=== PATIENT | female | born 1950 | race Caucasian/White ===

== ENCOUNTER → 2021-07-29 08:23 | Outpatient (CLI) | payer MEDICARE, SELFPAY ==
[2021-07-29 10:01] LABS: Add Manual Diff / Slide Review NO; Basophils Absolute Auto 0 /uL (0-100); Basophils Percent Auto 0.6 % (0-2); Eosinophils Absolute Auto 300 /uL (0-450); Eosinophils Percent Auto 5.1 % (2-4); Hematocrit 42.6 % (36-46); Hemoglobin 14.2 g/dL (12.0-16.0); Lymphocytes Absolute Auto 1700 /uL (1100-4500); Lymphocytes Percent Auto 30.7 % (25-40); Mean Corpuscular HGB Conc 33.3 % (30-36); Mean Corpuscular Hemoglobin 27.8 PG (26-34); Mean Corpuscular Volume 83.4 fL (80-100); Monocytes Absolute Auto 500 /uL (0-900); Monocytes Percent Auto 9.1 % (3-14); Neutrophils Absolute Auto 3000 /uL (1500-7000); Neutrophils Percent Auto 54.5 % (50-75); Platelet Count 207 X10^3/uL (150-400); Red Blood Cell Count 5.11 X10^6/uL (4.0-5.2); Red Cell Distribution Width 14.1 % (11.6-14.8); White Blood Cell Count 5.5 X10^3/uL (4.5-11.0)
[2021-07-29 10:16] LABS: Alanine Aminotransferase 33 IU/L (<35); Albumin 3.9 g/dL (3.5-5.0); Albumin Globulin Ratio 1.5 (1.0-2.8); Alkaline Phosphatase 80 U/L (38-126); Aspartate Aminotransferase 38 IU/L (14-36); BUN Creatinine Ratio 20.7 (6-22); Bilirubin Total 0.5 mg/dL (0.2-1.3); Blood Urea Nitrogen 17 mg/dL (7-17); Calcium 9.4 mg/dL (8.4-10.2); Carbon Dioxide 29 mmol/L (22-32); Chloride 106 mmol/L (98-107); Cholesterol 249 mg/dL (140-199); Estimated Glomerular Filt Rate > 60.0 mL/min (>60); Globulin 2.6 g/dL (1.7-4.1); Glucose 86 mg/dL (80-110); HDL Cholesterol 73 mg/dL (40-60); HEMOLYSIS < 15 (0-50); LDL Cholesterol Calculated 158 mg/dL (<100); Potassium 4.3 mmol/L (3.4-5.1); Sodium 140 mmol/L (137-145); Total Protein 6.5 g/dL (6.3-8.2); Triglycerides 92 mg/dL (35-150)
== END ==
PROVIDERS: Family Provider Physician Assistant; PCP Physician Assistant; Referring Provider Family Medicine; Visit Provider Family Medicine
DX: L40.9 Psoriasis, unspecified (principal); I10 Essential (primary) hypertension; M79.7 Fibromyalgia
CPT/HCPCS: 36415; 80053; 80061; 85025

== ENCOUNTER → 2021-07-31 11:53 | Outpatient (CLI) | payer MEDICARE, SELFPAY ==
[2021-08-01 09:20] LABS: Fecal Immunochemical Test Negative (Negative)
== END ==
PROVIDERS: Family Provider Physician Assistant; PCP Physician Assistant; Referring Provider Family Medicine; Visit Provider Family Medicine
DX: Z12.11 Encounter for screening for malignant neoplasm of colon (principal)
CPT/HCPCS: 82274

== ENCOUNTER → 2021-11-14 09:55 | Outpatient (CLI) | payer MEDICARE, SELFPAY ==
[2021-11-14 11:11] LABS: Cholesterol 198 mg/dL (140-199); HDL Cholesterol 61 mg/dL (40-60); LDL Cholesterol Calculated 120 mg/dL (<100); Triglycerides 84 mg/dL (35-150)
== END ==
PROVIDERS: Family Provider Physician Assistant; PCP Family Medicine; Referring Provider Family Medicine; Visit Provider Family Medicine
DX: E78.2 Mixed hyperlipidemia (principal); B35.4 Tinea corporis
CPT/HCPCS: 36415; 80061

== ENCOUNTER → 2023-04-26 08:16 | Outpatient (CLI) | payer MEDICARE, SELFPAY ==
--- NOTE | 2023-04-26 08:17 | DI.RAD.S_ITS ---
PROCEDURE: XR FOOT RT MIN 3V INDICATIONS: chronic pain of right foot TECHNIQUE: 3 views of the foot were acquired. COMPARISON: None. FINDINGS: Bones: No fractures or dislocations. Mild degenerative changes in the midfoot. No suspicious bony lesions. Soft tissues: No tibiotalar joint effusion. Achilles tendon appears normal. IMPRESSION: Mild degenerative changes in the midfoot. Consider MRI for further evaluation Dictated by: Luis F Spence M.D. on 04/26/2023 at 10:15 Approved by: Luis F Spence M.D. on 04/26/2023 at 10:17
== END ==
PROVIDERS: Family Provider Physician Assistant; PCP Family Medicine; Referring Provider Family Medicine; Visit Provider Family Medicine
DX: M79.671 Pain in right foot (principal); G89.29 Other chronic pain
CPT/HCPCS: 73630

== ENCOUNTER 2024-05-05 04:00 | Emergency (ER) | payer MEDICARE, SELFPAY ==
[2024-05-05 04:27] VITALS: BP 232/98; PULSE 78; RESP 16; O2SAT 98; BMI 32.3
[2024-05-05 04:32] LABS: Add Manual Diff / Slide Review NO; Basophils Absolute Auto 100 /uL (0-100); Basophils Percent Auto 0.7 % (0-2); Eosinophils Absolute Auto 200 /uL (0-450); Eosinophils Percent Auto 1.6 % (2-4); Hematocrit 41.1 % (36-46); Hemoglobin 13.7 g/dL (12.0-16.0); Lymphocytes Absolute Auto 1300 /uL (1100-4500); Lymphocytes Percent Auto 10.2 % (25-40); Mean Corpuscular HGB Conc 33.4 % (30-36); Mean Corpuscular Hemoglobin 27.8 PG (26-34); Monocytes Absolute Auto 500 /uL (0-900); Monocytes Percent Auto 3.6 % (3-14); Neutrophils Absolute Auto 10500 /uL (1500-7000); Neutrophils Percent Auto 83.9 % (50-75); Platelet Count 282 X10^3/uL (150-400); Red Blood Cell Count 4.95 X10^6/uL (4.0-5.2); Red Cell Distribution Width 13.5 % (11.6-14.8); White Blood Cell Count 12.5 X10^3/uL (4.5-11.0)
[2024-05-05 04:42] LABS: Alanine Aminotransferase 22 IU/L (<35); Albumin 4.6 g/dL (3.5-5.0); Albumin Globulin Ratio 1.6 (1.0-2.8); Alkaline Phosphatase 92 U/L (38-126); Aspartate Aminotransferase 31 IU/L (14-36); BUN Creatinine Ratio 21.2 (6-22); Bilirubin Total 0.4 mg/dL (0.2-1.3); Blood Urea Nitrogen 14 mg/dL (7-17); Calcium 9.2 mg/dL (8.4-10.2); Carbon Dioxide 27 mmol/L (22-32); Chloride 108 mmol/L (98-107); Estimated Glomerular Filt Rate > 60 mL/min (>60); Globulin 2.8 g/dL (1.7-4.1); Glucose 116 mg/dL (80-110); HEMOLYSIS 31 (0-50); Lipase 101 U/L (23-300); Potassium 3.9 mmol/L (3.4-5.1); Sodium 141 mmol/L (137-145); Total Protein 7.4 g/dL (6.3-8.2)
--- NOTE | 2024-05-05 04:44 | DI.CT.S_ITS ---
PROCEDURE: CT ABDOMEN PELVIS W CON INDICATIONS: Generalized abdominal pain with distention TECHNIQUE: After the administration of intravenous contrast, axial sections acquired from the lung bases to the pubic symphysis. Coronal and sagittal reformats were performed. For radiation dose reduction, the following was used: automated exposure control, adjustment of mA and/or kV according to patient size. COMPARISON: None. FINDINGS: Image quality: Diagnostic. Lower Chest: Small hiatal hernia. ABDOMEN: Liver: Scattered subcentimeter low-density lesions, likely cysts or hemangiomas. No enhancing mass. Gallbladder: No wall thickening or calcified stones. Biliary ducts: No biliary dilation. Pancreas: Normal size and morphology without visible ductal dilatation or inflammation. Spleen: Size is within normal limits. Adrenal Glands: No adrenal nodules. Kidneys and Ureters: Symmetric enhancement. No nephrolithiasis or hydronephrosis. No hydroureter. Stomach and Bowel: Stomach and small bowel loops are normal caliber. Normal appendix. There are signs of stasis in pelvic small bowel loops. Mild diverticulosis of the sigmoid colon. Peritoneum: Scattered mild fat stranding in the peritoneal cavity and at the base of the small bowel mesentery. Small amount of free pelvic fluid. Ventral Wall: No significant ventral hernia. Abdominal Nodes: No retroperitoneal or mesenteric adenopathy by size criteria. Vessels: Aorta and inferior vena cava are normal in size. PELVIS: Pelvic Organs: There is a heterogeneous, enhancing solid mass in the pelvis just right of midline measuring 8.9 x 7.3 cm, likely arising from the right ovary. Scattered areas of intrinsic hyperdensity. Calcification within a right fundal uterine fibroid. Left ovary is within normal limits. Bladder: No bladder wall thickening, accounting for underdistention. Pelvic Nodes: No enlarged lymph nodes. Miscellaneous: No inguinal hernias are seen. Bones: No aggressive osseous abnormality. IMPRESSION: 8.9 cm pelvic mass, likely associated with the right ovary and possibly containing active hemorrhage. Neoplasm is not excluded. Trace free pelvic fluid and minor reactive inflammation in the peritoneal cavity. Preliminary report conveyed by state inspector Radiology to the emergency room RN. Final interpretation is concordant with preliminary report. Dictated by: Juany Oliva M.D. on 05/05/2024 at 7:44 Approved by: Juany Oliva M.D. on 05/05/2024 at 7:57
--- NOTE | 2024-05-05 04:44 | ED.GENADULT ---
HPI - General Adult General Chief complaint: Abdominal Pain Stated complaint: abd pain, bloated, constipated Time Seen by Provider: 05/05/24 04:04 Source: patient Mode of arrival: Ambulatory History of Present Illness HPI narrative: Patient is a 74-year-old female. No prior history of abdominal issues who is here for evaluation of several days of abdominal bloating that she states last night became somewhat worse. She states she feels like she needs to have a bowel movement but has been unable to do so. Has not tried any laxatives. Also vomited last night. No fevers. She also states that there are occasionally episodes where she feels like she needs to urinate in has difficulty emptying her bladder and then the transfer she has not having any problems urinating. She states that she was really notice the bloating occurring over the past couple days but thought that maybe she has been having some bloating over the past several weeks if not longer. She denies chest pain or shortness of breath Related Data Home Medications Medication Instructions Recorded Confirmed calcium citrate 315 mg ##0 07/02/17 05/02/23 calcium-vitamin D3 6.25 mcg (250 unit) tablet (Citracal + Vitamin D Maximum) multivitamin (Multiple Vitamins 1 tab PO QDAY ##0 07/02/17 05/02/23 tablet) potassium gluconate 595 mg (99 mg) 99 mg PO QDAY ##0 07/02/17 05/02/23 tablet ascorbic acid (vitamin C) 1,000 mg 1 g PO Q6H 07/21/21 05/02/23 tablet Previous Rx's Medication Instructions Recorded hydrocodone 5 mg-acetaminophen 325 1 tab PO Q4-6H PRN pain #10 tabs 05/05/24 mg tablet Allergies Allergy/AdvReac Type Severity Reaction Status Date / Time morphine [MORPHINE] Allergy Severe STOPPED Unverified 05/05/23 12:14 BREATHING Sulfa (Sulfonamide Allergy Severe SWELLING, Unverified 05/05/23 12:14 Antibiotics) HIVES [SULFA (SULFONAMIDE ANTIBIOTICS)] Review of Systems Constitutional Constitutional: Reports system reviewed and no additional complaints, except as documented Gastrointestinal Gastrointestinal: Reports system reviewed and no additional complaints, except as documented Genitourinary Genitourinary: Reports system reviewed and no additional complaints, except as documented Integumentary/Breasts Skin/Breast: Reports system reviewed and no additional complaints, except as documented Patient History Medical History Somatic dysfunction of lower extremity Upper extremity somatic dysfunction Chronic pain of left hand Pain, foot, right, chronic Tinea corporis Hyperlipidemia, mixed Bilateral lower extremity edema Screen for colon cancer Psoriasis Eczema Sleep apnea (~2010) Fibromyalgia (~2006) Rheumatic fever Mumps Herpes Chicken pox Vertigo (~2017) Tinnitus Hearing loss Cataracts, bilateral (~2017) Hypertension Surgical History Anesthesia History of dilatation and curettage (~1993) History of tonsillectomy (~1965) Lipoma (~2016) Uterine polyp (~2016) Family History Father History of heart disease Mother History of heart disease Hypertension Brother Cancer Grandfather History of heart disease Grandmother Hip fracture Grandfather Cancer Social History Smoking Status: Former smoker alcohol intake: never substance use type: does not use Smoking Status: Former smoker Substance Use Type: does not use Exam Initial Vital Signs Initial Vital Signs: Vital Signs Pulse Rate 78 05/05/24 04:27 Respiratory Rate 16 05/05/24 04:27 Blood Pressure 232/98 H 05/05/24 04:27 Pulse Oximetry 98 05/05/24 04:27 Oxygen Delivery Method Room Air 05/05/24 04:27 Const General: cooperative, comfortable and No ill appearing Resp Effort & Inspection: normal respiratory effort Cardio Rate: regular rate GI Inspection: normal to inspection and distended Palpation: soft, No firm, No guarding and No rigid Skin General: no rashes or lesions noted Neuro General: patient alert, patient awake, patient oriented x3 and moves all extremities Course Orders Ordered: ED Orders 05/05/24 04:16 Complete Blood Count AUTO DIFF Stat Comprehensive Metabolic Panel Stat Lipase Stat 05/05/24 04:28 EKG-12 Lead Stat 05/05/24 04:44 CT abdomen pelvis w con Stat 05/05/24 05:23 US pelvic complete Stat 05/05/24 06:25 Cancer Antigen 125 Stat 05/05/24 06:27 Hemoglobin and Hematocrit Stat 06/04/24 06:42 Consult to Physician Stat Vital Signs Vital signs: Vital Signs - 8 hr 05/05/24 04:27 Pulse Rate 78 Respiratory Rate 16 Blood Pressure 232/98 H Pulse Oximetry 98 Oxygen Delivery Method Room Air Medical Decision Making Lab Data Lab results reviewed: Yes I reviewed the patient's lab results. 05/05/24 06:27 05/05/24 04:16 Labs: Lab Results 05/05/24 05/05/24 Range/Units 04:16 06:27 WBC 12.5 H (4.5-11.0) X10^3/uL RBC 4.95 (4.0-5.2) X10^6/uL Hgb 13.7 12.1 (12.0-16.0) g/dL Hct 41.1 36.0 (36-46) % MCV 83.0 (80-100) fL MCH 27.8 (26-34) PG MCHC 33.4 (30-36) % RDW 13.5 (11.6-14.8) % Plt Count 282 (150-400) X10^3/uL Neut % (Auto) 83.9 H (50-75) % Lymph % (Auto) 10.2 L (25-40) % [place] % (Auto) 3.6 (3-14) % Eos % (Auto) 1.6 L (2-4) % Baso % (Auto) 0.7 (0-2) % Neut # (Auto) 93655 H (2053-5526) /uL Lymph # (Auto) 1300 (1811-1137) /uL [place] # (Auto) 500 (0-900) /uL Eos # (Auto) 200 (0-450) /uL Baso # (Auto) 100 (0-100) /uL Sodium 141 (137-145) mmol/L Potassium 3.9 (3.4-5.1) mmol/L Chloride 108 H (98-107) mmol/L Carbon Dioxide 27 (22-32) mmol/L BUN 14 (7-17) mg/dL Creatinine 0.66 (0.52-1.04) mg/dL Estimated GFR > 60 (>60) mL/min BUN/Creatinine Ratio 21.2 (6-22) Glucose 116 H (80-110) mg/dL Calcium 9.2 (8.4-10.2) mg/dL Total Bilirubin 0.4 (0.2-1.3) mg/dL AST 31 (14-36) IU/L ALT 22 (<35) IU/L Alkaline Phosphatase 92 (38-126) U/L Total Protein 7.4 (6.3-8.2) g/dL Albumin 4.6 (3.5-5.0) g/dL Globulin 2.8 (1.7-4.1) g/dL Albumin/Globulin Ratio 1.6 (1.0-2.8) Lipase 101 (23-300) U/L Urine Dip Bedside Urine Glucose Negative Bedside Urine Bilirubin - Negative Bedside Urine Ketone - Negative Urine Specific [place] 1.015 Bedside Urine Occult Blood - Negative Bedside Urine pH 7.0 Bedside Urine Protein - Negative Bedside Urine Urobilinogen - Negative Bedside Urine Nitrite - Negative Bedside Urine Leukocytes - Negative Esterase Point of care testing: Urine Dip Bedside Urine Glucose Negative Bedside Urine Bilirubin - Negative Bedside Urine Ketone - Negative Urine Specific [place] 1.015 Bedside Urine Occult Blood - Negative Bedside Urine pH 7.0 Bedside Urine Protein - Negative Bedside Urine Urobilinogen - Negative Bedside Urine Nitrite - Negative Bedside Urine Leukocytes - Negative Esterase Imaging Data CT scan - abdomen/pelvis: Radiologist's Impression: Heterogeneous mass in the pelvis slightly to the right of midline measuring 8.9 x 7.3 cm likely arising from the right ovary and likely a hemorrhagic cyst with questionable active arterial extravasation ECG Data Attestation: I personally reviewed and interpreted this ECG as follows: Interpretation: Sinus rhythm Ventricular rate of 81 Normal axis Normal QRS No ST T wave changes MDM Narrative Medical decision making narrative: Sounds like patient's symptoms have been present for the past several weeks but potentially worsened over the past couple days. CT scan shows a right adnexal mass. Ultrasound confirms right adnexal mass. There was some findings of the CT scan that maybe there is active bleeding however patient has not had a change in her H&H. Not tachycardic. Not febrile. I discuss the case with Dr. Davila on-call with laboratory apparatus glass grinder who recommended ordering the CA 125. This was pending at the patient's discharge. Plan will be to have the patient follow-up in the laboratory apparatus glass grinder office in the next 20-48 hours as an outpatient. I did discuss this with the patient. Discussed return precautions and follow-up instructions. They expressed understanding and agreement with the plan. Discharge Plan Departure Patient Disposition: Home Clinical Impression: Adnexal mass Activity Restrictions/Additional Instructions: You should be receiving a phone call from Dr. Davila he was an decorator mannequin provider here at the [address] This is for a follow-up scheduled within the next 24-48 hours. Continue to take all of your medications as directed. Return to the emergency department for new or worsening symptoms. Prescriptions: New hydrocodone-acetaminophen 5-325 mg tablet 1 tab PO Q4-6H PRN (Reason: pain) Qty: 10 0RF No Action calcium citrate-vitamin D3 [Citracal + D Maximum] 1,500 MG/250 IU tablet Qty: 0 multivitamin [Multiple Vitamins] 1 EACH tablet 1 tab PO QDAY Qty: 0 potassium gluconate 99 MG tablet 99 mg PO QDAY Qty: 0 ascorbic acid (vitamin C) 1,000 mg tablet 1 g PO Q6H Referrals: Landy Davila MD [Physician] - Roberto Carlos Tovar DO [Primary Care Provider] - Stand Alone Forms: Patient Portal/API
--- NOTE | 2024-05-05 05:23 | DI.US.S_ITS ---
PROCEDURE: US PELVIC COMPLETE INDICATIONS: R ovarian pathology seen on CT TECHNIQUE: Real-time scanning was performed of the pelvic organs, with image documentation. Additional endovaginal scanning was necessary due to incomplete visualization of the adnexal and endometrial structures by transabdominal scanning. COMPARISON: [facility], , PELVIC COMPLETE, 05/06/2017, 13:40. FINDINGS: Uterus: Uterus is anteverted and normal in size at 6.7 x 3.5 x 6.2 cm. The myometrium is homogeneous. The endometrium measures 6.5 mm combined thickness. Several endometrial and sub endometrial cystic changes are present. Ovaries: The ovaries were not seen. Superior to the uterus, there is a solid complex mass measuring 8.2 x 6.8 x 8.0 cm without internal vascularity. Other: Trace free pelvic fluid. IMPRESSION: Solid pelvic mass as seen by CT. Differential diagnosis includes hemorrhagic cyst and neoplasm. The exam was terminated due to patient discomfort. Endometrial thickness at the upper limits of normal for postmenopausal female. If the patient is symptomatic, tissue sampling could be considered. Final interpretation is concordant with preliminary report. We strive to produce accurate, complete, and clear reports of imaging services. To assist us in improving patient care, this report was composed using standard report templates and voice recognition software. Therefore, it may contain abnormal punctuation, insertions and/or omissions. Occasional wrong-word or sound-alike substitutions may occur. Though we review the report and make efforts to correct it, we do recommend that the report be read carefully in proper context to recognize any text inaccuracies. Dictated by: Juany Oliva M.D. on 05/05/2024 at 7:57 Approved by: Juany Oliva M.D. on 05/05/2024 at 8:03
[2024-05-05 06:38] LABS: Hemoglobin 12.1 g/dL (12.0-16.0)
[2024-05-05 07:03] VITALS: BP 194/85; PULSE 74; RESP 16; O2SAT 98
[2024-05-05 07:27] LABS: Cancer Antigen 125 20.8 U/mL (0-35)
== END 2024-05-05 07:05 | disposition home or self-care (01) ==
PROVIDERS: Emergency Provider Emergency Medicine; Family Provider Physician Assistant; PCP Family Medicine
DX: N94.89 Other specified conditions associated with female genital organs and menstrual cycle (principal); R07.9 Chest pain, unspecified; R79.89 Other specified abnormal findings of blood chemistry
CPT/HCPCS: 36415; 51798; 74177; 76830; 76856; 80053; 81003; 83690; 85014; 85018; 85025; 86304; 93005; 99283; 99284; Q9967

== ENCOUNTER 2024-05-07 16:47 | Emergency (ER) | payer MEDICARE, SELFPAY ==
[2024-05-07 17:02] VITALS: BP 126/60; PULSE 88; RESP 17; TEMP 36.6; O2SAT 97; BMI 34.6
[2024-05-07 17:47] LABS: Appearance Urine UA CLEAR; Bilirubin Urine UA NEGATIVE (NEGATIVE); Color Urine UA YELLOW; Glucose Urine UA NEGATIVE (Negative); Ketones Urine UA 1+ (NEGATIVE); Leukocyte Esterase Urine UA NEGATIVE (NEGATIVE); Nitrite Urine UA NEGATIVE (Negative); Occult Blood Urine UA 1+ (Negative); Protein Urine UA NEGATIVE (Negative); Urobilinogen Urine UA 0.2 E.U./dL (0.2)
[2024-05-07 17:54] LABS: Bacteria Urine Occasional (0-1); Culture Indicated Urine Cult Not Indicated; Mucus Urine 1+ (Negative); RBC Urine 1-5/HPF (0-5/HPF); Squamous Epithelial Cell Urine None Seen (0-5/HPF); Urine Volume 10mL (spun); WBC Urine 0-1/HPF (0-5/HPF)
--- NOTE | 2024-05-07 19:54 | ED.GENADULT ---
HPI - General Adult General Chief complaint: Urogenital-Female Stated complaint: unable to urinate 18+ hrs Time Seen by Provider: 05/07/24 19:54 Source: patient Mode of arrival: Ambulatory Related Data Home Medications Medication Instructions Recorded Confirmed calcium citrate 315 mg ##0 07/02/17 05/06/24 calcium-vitamin D3 6.25 mcg (250 unit) tablet (Citracal + Vitamin D Maximum) multivitamin (Multiple Vitamins 1 tab PO QDAY ##0 07/02/17 05/06/24 tablet) potassium gluconate 595 mg (99 mg) 99 mg PO QDAY ##0 07/02/17 05/06/24 tablet ascorbic acid (vitamin C) 1,000 mg 1 g PO Q6H 07/21/21 05/06/24 tablet Previous Rx's Medication Instructions Recorded hydrocodone 5 mg-acetaminophen 325 1 tab PO Q4-6H PRN pain #10 tabs 05/05/24 mg tablet Allergies Allergy/AdvReac Type Severity Reaction Status Date / Time morphine [MORPHINE] Allergy Severe STOPPED Verified 05/07/24 17:05 BREATHING Sulfa (Sulfonamide Allergy Severe SWELLING, Verified 05/07/24 17:05 Antibiotics) HIVES [SULFA (SULFONAMIDE ANTIBIOTICS)] Patient History Medical History Somatic dysfunction of lower extremity Upper extremity somatic dysfunction Chronic pain of left hand Pain, foot, right, chronic Tinea corporis Hyperlipidemia, mixed Bilateral lower extremity edema Screen for colon cancer Psoriasis Eczema Sleep apnea (~2010) Fibromyalgia (~2006) Rheumatic fever Mumps Herpes Chicken pox Vertigo (~2016) Tinnitus Hearing loss Cataracts, bilateral (~2017) Hypertension Surgical History Anesthesia History of dilatation and curettage (~1993) History of tonsillectomy (~1965) Lipoma (~2016) Uterine polyp (~2016) Family History Father History of heart disease Mother History of heart disease Hypertension Brother Cancer Grandfather History of heart disease Grandmother Hip fracture Grandfather Cancer Social History Smoking Status: Former smoker alcohol intake: never substance use type: does not use Smoking Status: Former smoker Substance Use Type: does not use Exam Initial Vital Signs Initial Vital Signs: Vital Signs Temperature 98 F 05/07/24 17:02 Pulse Rate 88 05/07/24 17:02 Respiratory Rate 17 05/07/24 17:02 Blood Pressure 126/60 05/07/24 17:02 Pulse Oximetry 97 05/07/24 17:02 Oxygen Delivery Method Room Air 05/07/24 17:02 Course Orders Ordered: ED Orders 05/07/24 17:20 Urinalysis and Microscopic Stat Vital Signs Vital signs: Vital Signs - 8 hr 05/07/24 17:02 Temperature 98 F Pulse Rate 88 Respiratory Rate 17 Blood Pressure 126/60 Pulse Oximetry 97 Oxygen Delivery Method Room Air Medical Decision Making Lab Data Labs: Lab Results 05/07/24 Range/Units 17:20 Urine Color Yellow Urine Appearance Clear Urine pH 6.0 (4.5-8.0) Ur Specific [place] 1.010 (1.000-1.035) Urine Protein Negative (Negative) Urine Glucose (UA) Negative (Negative) g/dL Urine Ketones 1+ H (NEGATIVE) Urine Occult Blood 1+ H (Negative) Urine Nitrate Negative (Negative) Urine Bilirubin Negative (NEGATIVE) Urine Urobilinogen 0.2 (0.2) E.U./dL Ur Leukocyte Esterase Negative (NEGATIVE) Urine RBC 1-5/hpf (0-5/HPF) Urine WBC 0-1/hpf (0-5/HPF) Ur Squamous Epith Cells None seen (0-5/HPF) Urine Bacteria Occasional (0-1) (None) Urine Mucus 1+ H (Negative) Ur Culture Indicated? Cult not indicated Vol Urine Centrifuged 10ml (spun) Discharge Plan Departure Prescriptions: No Action calcium citrate-vitamin D3 [Citracal + D Maximum] 1,500 MG/250 IU tablet Qty: 0 multivitamin [Multiple Vitamins] 1 EACH tablet 1 tab PO QDAY Qty: 0 potassium gluconate 99 MG tablet 99 mg PO QDAY Qty: 0 ascorbic acid (vitamin C) 1,000 mg tablet 1 g PO Q6H hydrocodone-acetaminophen 5-325 mg tablet 1 tab PO Q4-6H PRN (Reason: pain) Qty: 10 0RF Referrals: Roberto Carlos Tovar DO [Primary Care Provider] -
== END 2024-05-07 21:00 | disposition left against medical advice (07) ==
PROVIDERS: Emergency Medicine; Emergency Provider Emergency Medicine; Family Provider Physician Assistant; PCP Family Medicine
DX: R33.9 Retention of urine, unspecified (principal)
CPT/HCPCS: 51798; 81001; 99283

== ENCOUNTER 2024-05-14 07:54 | Day surgery (SDC) | payer MEDICARE, SELFPAY ==
[2024-05-11 12:53] VITALS: BMI 31.3
[2024-05-14] VITALS (9 sets, daily range): BP systolic 122–149; BP diastolic 26–79; PULSE 69–89; RESP 14–69; TEMP 36.4–36.8; O2SAT 90–97; BMI 33.5
--- NOTE | 2024-05-14 | PATH_ITS ---
Note [facility] Accession Number: [id number] TESTS RESULT FLAG UNITS REF RANGE LAB Clinician Provided Cytology Information No. of containers..01 Other (Miscellaneous) Source: PELVIC WASHINGS DIAGNOSIS: PELVIC WASHINGS NEGATIVE FOR MALIGNANT CELLS. REACTIVE MESOTHELIAL CELLS ARE PRESENT. THIS INTERPRETATION INCLUDES EVALUATION OF A CELL BLOCK. Pathologist ICD10: D25.0 Signed out by: Fabricio Maldonado MD, Pathologist NPI- [id number] Performed by: Kem Wolf, Business Resiliency Manager ([facility]) Gross description: 20 CC, RED, CLOUDY RECEIVED: FRESH IN BLUE CAP CONTAINER.VO /VDU 05/15/2024 0625 Local FLAG LEGEND: L-Low Normal,H-High Normal,LL-Alert Low,HH-Alert High <-Panic Low,>-Panic High,A-Abnormal,AA-Critical Abnormal Performed at: 01 [address] [facility] [address] [facility], [place] [address] Manan Sheikh MD, Performed at: [address] [facility] [address] [facility], [place], [place] [id number] MD Manan Sheikh MD Phone: [phone]
[2024-05-14] MEDS: LACTATED RINGERS 1,000 ML 42 ML IV (08:31)
[2024-05-14] MEDS: ACETAMINOPHEN IV 1,000 MG/100 ML VIAL 400 MG IV (08:32)
--- NOTE | 2024-05-14 09:29 | PM.GYNHP.1 ---
History of Present Illness History of Present Illness Reason for admission: pelvic mass Narrative: Virginia Chacko is a 74 year old female 1 para 1 who presents for a laparoscopic removal of pelvic mass, removal of both tubes and ovaries, D&C hysteroscopy with possible polypectomy. These procedures are being done due to a large calcified pelvic mass, patient unable to void completely due to the mass, and thickened endometrial lining with a history of uterine polyps. [facility] Medical History Somatic dysfunction of lower extremity Upper extremity somatic dysfunction Chronic pain of left hand Pain, foot, right, chronic Tinea corporis Hyperlipidemia, mixed Bilateral lower extremity edema Screen for colon cancer Psoriasis Eczema Sleep apnea (~2010) Fibromyalgia (~2006) Rheumatic fever Mumps Herpes Chicken pox Vertigo (~2016) Tinnitus Hearing loss Cataracts, bilateral (~2017) Hypertension Surgical History Anesthesia History of dilatation and curettage (~1993) History of tonsillectomy (~1965) Lipoma (~2016) Uterine polyp (~2016) Family History Father History of heart disease Mother History of heart disease Hypertension Brother Cancer Grandfather History of heart disease Grandmother Hip fracture Grandfather Cancer Social History household members: significant other Smoking Status: Former smoker alcohol intake: never substance use type: does not use Meds Home Medications and Allergies Home Medications Medication Instructions Recorded Confirmed Type calcium citrate 315 mg ##0 07/02/17 05/06/24 History calcium-vitamin D3 6.25 mcg (250 unit) tablet (Citracal + Vitamin D Maximum) multivitamin (Multiple Vitamins 1 tab PO QDAY ##0 07/02/17 05/06/24 History tablet) potassium gluconate 595 mg (99 mg) 99 mg PO QDAY ##0 07/02/17 05/06/24 History tablet ascorbic acid (vitamin C) 1,000 mg 1 g PO Q6H 07/21/21 05/06/24 History tablet hydrocodone 5 mg-acetaminophen 325 1 tab PO Q4-6H PRN pain #10 tabs 05/05/24 05/06/24 Rx mg tablet Allergies Allergy/AdvReac Type Severity Reaction Status Date / Time morphine [MORPHINE] Allergy Severe STOPPED Verified 05/07/24 17:05 BREATHING Sulfa (Sulfonamide Allergy Severe SWELLING, Verified 05/07/24 17:05 Antibiotics) HIVES [SULFA (SULFONAMIDE ANTIBIOTICS)] Exam Vital Signs (past 8 hours): - 05/14/24 08:26 Temperature 98.1 F Pulse Rate 77 Respiratory Rate 16 Blood Pressure 146/77 H Pulse Oximetry 94 Oxygen Delivery Method Room Air Oxygen Delivery Method Room Air Narrative Exam Narrative: HEENT: No thyromegaly, no anterior cervical or supraclavicular lymphadenopathy. Lungs:Clear to auscultation bilaterally, no wheezes. Cardiovascular: Regular rate and rhythm, no murmurs, rubs, or gallops. Abdomen: No scars. No hepatosplenomegaly. Mass palpable in the anterior abdomen External genitalia: Normal Vagina: Normal Cervix: Normal Bimanual exam: 6 Week size anteverted uterus. Mobile. Pelvic mass palpable measuring 8 cm. Extremities: No edema Assessment & Plan Assessment & Plan narrative: Assessment: 74-year-old 1 para 1 with a large pelvic mass, suspected to be a pedunculated fibroid, incomplete emptying of the bladder, thickened endometrial lining with a history of endometrial polyps Plan: Laparoscopic removal of the mass, bilateral salpingo-oophorectomy, D&C hysteroscopy with possible polypectomy Removal of Montes catheter at the end of the case The risks, benefits, and alternatives to the procedure were explained to the patient. The risks including bleeding, infection, injury to the bowel, bladder, ureters, or uterine perforation. She understands these risks and agrees to proceed. A full par Q was held and consent form was signed. Time Spent With Patient Time with patient: less than 30 minutes
--- NOTE | 2024-05-14 10:25 | SUR.OPER ---
Lithotomy on padded OR bed. [place] Pad Positioner under torso. Head on pillow, arms padded and tucked at sides. Legs secured in padded yellow fins stirrups.
[2024-05-14] MEDS: BUPIVACAINE 0.5% (PF) 30 ML, EPINEPHrine 0.15 MG INJ (10:29)
--- NOTE | 2024-05-14 11:14 | PM.GYNOP.1 ---
Operative Date/Time/Diagnoses Date of procedure: 05/14/24 Time of procedure: 11:14 Pre-op diagnosis: Pelvic pain Pelvic mass suspicious for pedunculated fibroid Normal CA-125 Post-op diagnosis: same Procedure & Clinicians Procedure: Procedures Operation Date: 05/14/24 09:15 Actual Procedure Side Surgeon p Laparoscopic removal of pedunculated fibroid, removal of bilateral fallopian tubes and ovaries, D & C, Catheter removal Landy Davila MD Indications: 74-year-old 1 para 1 with a pelvic mass suspicious for a pedunculated, degenerating fibroid. Unable to void, catheter placed in the bladder in the emergency department. Thickened endometrial lining. Surgeon: Landy Davila Ends Breakage Clerk: Robby Hoffman Anesthesia Type: General and Local Operative Notes Findings: 6 week size multi fibroid uterus 4 cm posterior pedunculated fibroid 5 cm subserosal fibroid 10 cm complex mass arriving from the right ovary Normal right tube Normal left tube and ovary Normal liver and gallbladder No evidence of seeding of the omentum, bilateral ovarian fossa, anterior or posterior cul-de-sac Closure Type: primary Specimen(s): endometrial curettings, left tube & ovary, right tube & ovary and washings (Pelvic) Applied: catheter (Was in place at the beginning of the case, removed at the end of the case) Estimated blood loss (mL): 10 Blood products transfused: none Procedure in detail: After informed consent was obtained, the patient was taken to the operating room where she was placed in the dorsal supine position. After adequate general endotracheal anesthesia was achieved, she was placed in the dorsal lithotomy position, and prepped and draped in the usual sterile fashion. A time-out was performed. A bivalve speculum was placed into the vagina and the anterior lip of the cervix was grasped with a single-tooth tenaculum. The cervical os was sequentially dilated until the Zumi uterine manipulator could pass easily into the endometrial cavity. The single-tooth tenaculum was removed from the anterior lip of the cervix. The bivalve speculum was removed from the vagina. Attention was then turned to the abdomen where 6 cc of 0.5% Marcaine with epinephrine were injected in the umbilical fold. A 5 mm incision was made. The Veress needle was placed into the peritoneal cavity, and its placement confirmed by aspiration and drop test. The Veress needle was removed. A 5 mm trocar was placed without difficulty. Two other incisions were made 4 cm lateral to the midline after 6 cc of 0.5% Marcaine with epinephrine were injected. Two 5 mm trocars were placed under direct visualization. The pelvis and abdomen were examined with the findings noted above. Pelvic washings were obtained. The left tube and ovary were grasped with an atraumatic grasper. Using the power seal the infundibulopelvic ligament on the left side was cauterized and cut. The mesosalpinx was cauterized and cut all the way down to the cornua of the uterus. The tube was amputated at the cornua. The left tube and ovary were placed into the anterior cul-de-sac. The right tube and ovary were grasped with an atraumatic grasper. With care to avoid the ureter on the right side the infundibulopelvic ligament was cauterized and cut with the power seal. This was continued along the pedicle to the cornua of the uterus. The tube was then amputated at the cornua. The right tube and ovary were placed into the right lower quadrant. There was a pedunculated fibroid on the posterior uterus. This was grasped with a laparoscopic single-tooth tenaculum. Using the power seal the pedicle was cauterized and cut. This was placed into the right lower quadrant. The left tube and ovary were also placed into the right lower quadrant. 6 cc of 0.5% Marcaine with epinephrine were injected above the pubic symphysis. A 12 mm incision was made. A 12 mm trocar was placed under direct visualization. The large endobag was placed through the suprapubic trocar. The right tube and ovary, left tube and ovary, and pedunculated fibroid were placed into the bag. The trocar was removed and the edges of the bag were brought up through the incision. Using the Pagan scissors the fascial incision was extended bilaterally. An Rommel was placed into the large endobag. The right ovary was morcellated in approximately 20 pieces. This was very friable. The left tube and ovary were removed as well as the fibroid. The bag was removed from the peritoneal cavity. The fascial incision was closed with 0 Vicryl in a running fashion. The abdomen was re-insufflated and there was no bleeding noted. The instruments were removed from the abdomen. The CO2 was allowed to escape. All of the incisions were closed with 4-0 Monocryl in a subcuticular fashion. Steri-Strips and Allevyn dressings were placed. The Zumi uterine manipulator was removed from the uterus. Sponge, lap, and instrument counts were correct x2. The patient tolerated the procedure well, and was taken to PACU in stable condition. Complications: none Post-operative Condition: stable Disposition: PACU Plan for aftercare: Home after recovery
--- NOTE | 2024-05-14 11:21 | PM.PREOP ---
Pre-operative Note Interval Note History & Physical reviewed/Exam performed by Physician: Yes Changes to H&P: No H&P completed within 30 days and has changed as indicated here:: 05/14/24
[2024-05-14] MEDS: TRAMADOL 50 MG TABLET 25 MG PO ×2 (13:31→14:43)
== END 2024-05-14 14:45 | disposition home or self-care (01) ==
PROVIDERS: Family Provider Physician Assistant; PCP Family Medicine; Referring Provider Obstetrics & Gynecology; Visit Provider Obstetrics & Gynecology
PROC: (CPT 49320; principal; 2024-05-14 09:15)
DX: D25.2 Subserosal leiomyoma of uterus (principal)
CPT/HCPCS: 58545; 58661; J0136; J0171; J1100; J1885; J2405; J2704; J3010

== ENCOUNTER → 2025-05-12 10:17 | Outpatient (CLI) | payer MEDICARE, SELFPAY ==
[2025-05-12 12:01] LABS: HEMOLYSIS < 15 (0-50)
[2025-05-12 12:06] LABS: Alanine Aminotransferase 32 IU/L (<35); Albumin 4.3 g/dL (3.5-5.0); Albumin Globulin Ratio 1.9 (1.0-2.8); Alkaline Phosphatase 97 U/L (38-126); Aspartate Aminotransferase 37 IU/L (14-36); BUN Creatinine Ratio 12.1 (6-22); Bilirubin Total 0.4 mg/dL (0.2-1.3); Blood Urea Nitrogen 12 mg/dL (7-17); Calcium 10.1 mg/dL (8.4-10.2); Carbon Dioxide 27 mmol/L (22-32); Chloride 108 mmol/L (98-107); Cholesterol 227 mg/dL (140-199); Estimated Glomerular Filt Rate 59 mL/min (>60); Globulin 2.3 g/dL (1.7-4.1); Glucose 96 mg/dL (70-99); HDL Cholesterol 77 mg/dL (40-60); LDL Cholesterol Calculated 124 mg/dL (<100); Potassium 5.2 mmol/L (3.4-5.1); Sodium 142 mmol/L (137-145); Total Protein 6.6 g/dL (6.3-8.2); Triglycerides 132 mg/dL (35-150)
[2025-05-12 12:37] LABS: TSH w/ Reflex to FT4 1.61 uIU/mL (0.47-4.68)
[2025-05-12 12:44] LABS: Cancer Antigen 125 19.8 U/mL (0-35)
== END ==
PROVIDERS: PCP Family Medicine; Referring Provider Family Medicine; Visit Provider Family Medicine
DX: R14.0 Abdominal distension (gaseous) (principal); R53.83 Other fatigue; R19.5 Other fecal abnormalities; F32.A Depression, unspecified; Z85.43 Personal history of malignant neoplasm of ovary
CPT/HCPCS: 36415; 80053; 80061; 84443; 86304

== ENCOUNTER → 2025-05-13 08:55 | Outpatient (CLI) | payer MEDICARE, SELFPAY ==
[2025-05-14 16:08] LABS: C difficie Toxins A and B, EIA Negative (Negative)
== END ==
PROVIDERS: PCP Family Medicine; Referring Provider Family Medicine; Visit Provider Family Medicine
DX: R14.0 Abdominal distension (gaseous) (principal); R19.5 Other fecal abnormalities; R53.83 Other fatigue; F32.A Depression, unspecified; Z85.43 Personal history of malignant neoplasm of ovary
CPT/HCPCS: 87324

== ENCOUNTER → 2025-05-15 12:08 | Outpatient (CLI) | payer MEDICARE, SELFPAY ==
--- NOTE | 2025-05-15 12:10 | DI.CT.S_ITS ---
PROCEDURE: CT ABDOMEN PELVIS W CON INDICATIONS: stool caliber change, bloating, hx ovarian cancer TECHNIQUE: After the administration of intravenous contrast, axial sections acquired from the lung bases to the pubic symphysis. Coronal and sagittal reformats were performed. For radiation dose reduction, the following was used: automated exposure control, adjustment of mA and/or kV according to patient size. COMPARISON: [facility], CT, CT ABDOMEN PELVIS W CON, 05/05/2024, 4:53. FINDINGS: Image quality: Diagnostic. Lower Chest: No significant findings. ABDOMEN: Liver: No solid mass. Well-circumscribed cyst in inferior right hepatic lobe is again seen and unchanged. Gallbladder: No radiopaque gallstones or wall thickening. Biliary ducts: No biliary dilation. Pancreas: No ductal dilation. Spleen: Size is within normal limits. Adrenal Glands: No adrenal nodules. Kidneys and Ureters: No hydronephrosis. No solid mass. No complex renal cystic lesion which requires follow up. Stomach and Bowel: There is no bowel obstruction or abnormal bowel wall thickening. Appendix is visualized in right lower quadrant and is within normal limits. Oral contrast is seen in mid to distal small bowel loops. Colonic diverticulosis without CT evidence of acute diverticulitis. There is questionable right-sided rectal wall thickening with narrowing of the lumen series 2, image 123 not seen on previous study. No other area of abnormal colonic wall thickening. Peritoneum: No abnormal intraperitoneal fluid. No free air. Ventral Wall: No significant ventral hernia. Abdominal Nodes: No retroperitoneal or mesenteric adenopathy by size criteria. Vessels: Aorta and inferior vena cava are normal in size. PELVIS: Pelvic Organs: Unremarkable. Previously described heterogeneously enhancing solid mass in right pelvis is no longer present Bladder: No bladder wall thickening, accounting for underdistention. Pelvic Nodes: No enlarged lymph nodes. Miscellaneous: No inguinal hernias are seen. Bones: No aggressive osseous abnormality. IMPRESSION: 1. Previously described right lower pelvic mass is low longer present.. No gross abnormality is seen in uterus and bilateral adnexa on the current study. 2. Asymmetric right-sided rectal wall thickening with narrowing of the lumen concerning for rectal wall mass versus inflammatory process suggest GI correlation and possible endoscopic evaluation. 3. No other area of abnormal bowel wall thickening. Sigmoid diverticulosis without CT evidence of acute diverticulitis. No abscess collection. No free fluid or free air. 4. No gross abdominal or pelvic lymphadenopathy. Dictated by: Zackary Garcia M.D. on 05/16/2025 at 20:51 Approved by: Zackary Garcia M.D. on 05/16/2025 at 20:59
== END ==
LOC: CT 12:09
PROVIDERS: PCP Family Medicine; Referring Provider Family Medicine; Visit Provider Family Medicine
DX: K57.30 Diverticulosis of large intestine without perforation or abscess without bleeding (principal); K76.89 Other specified diseases of liver; R19.5 Other fecal abnormalities; R14.0 Abdominal distension (gaseous)
CPT/HCPCS: 74177; Q9967

== ENCOUNTER 2025-05-25 10:38 | Day surgery (SDC) | payer MEDICARE, SELFPAY ==
[2025-05-25] VITALS (10 sets, daily range): BP systolic 170–189; BP diastolic 84–99; PULSE 78–104; RESP 16–22; TEMP 36.2–37.3; O2SAT 93–100
--- NOTE | 2025-05-25 | DI.RAD.S_ITS ---
PROCEDURE: XR CHEST 1V INDICATIONS: shortness of breath after anesthesia TECHNIQUE: One view of the chest was acquired. COMPARISON: None. FINDINGS: Surgical changes and devices: None. Lungs and pleura: Consolidative radiopacities are present within the mid and left lower lung. The right lung is clear. No pleural effusion or pneumothorax. Mediastinum: Mediastinal contours appear normal. Heart size is normal. Bones and chest wall: No suspicious bony lesions. Overlying soft tissues appear unremarkable. IMPRESSION: Findings suspicious for left lower lobe aspiration. Short interval followup is recommended with resolution of the patient's symptoms to ensure there is no underlying pulmonary pathology. Dictated by: Emily García M.D. on 05/25/2025 at 14:53 Approved by: Emily García M.D. on 05/25/2025 at 14:53
[2025-05-25] MEDS: LACTATED RINGERS 1,000 ML 42 ML IV (11:26)
--- NOTE | 2025-05-25 12:23 | PM.HP.IH.1 ---
History of Present Illness History of Present Illness Date Patient Seen: 05/25/25 Time Patient Seen: 12:24 Chief complaint: Dx Colonoscopy w/poss bx Narrative: 75-year-old female patient, 1st screening colonoscopy. Family history significant for a brother and a paternal grandfather with colon cancer. She has a history of irritable bowel syndrome. She had a recent CT imaging for uterine leiomyoma which was removed and this demonstrated rectal wall thickening and diverticulosis. Patient states the prep went well. [facility] Medical History (Updated 05/25/25 @ 12:26 by Martínez Maldonado MD) Rectal abnormality Depression Fatigue Hx of ovarian cancer Abdominal bloating Change in stool caliber Somatic dysfunction of lower extremity Upper extremity somatic dysfunction Chronic pain of left hand Pain, foot, right, chronic Tinea corporis Hyperlipidemia, mixed Bilateral lower extremity edema Screen for colon cancer Psoriasis Eczema Sleep apnea (~2010) Fibromyalgia (~2006) Rheumatic fever Mumps Herpes Chicken pox Vertigo (~2016) Tinnitus Hearing loss Cataracts, bilateral (~2016) Hypertension Surgical History Anesthesia History of dilatation and curettage (~1993) History of tonsillectomy (~1965) Uterine polyp (~2016) Lipoma (~2016) Family History Father History of heart disease Mother History of heart disease Hypertension Brother Cancer Grandfather History of heart disease Grandmother Hip fracture Grandfather Cancer Social History household members: significant other Smoking Status: Former smoker alcohol intake: never substance use type: does not use Meds Home Medications and Allergies Home Medications ?Medication ?Instructions ?Recorded ?Confirmed ?Type calcium 315 mg (as ##0 07/02/17 05/12/25 History citrate)-vitamin D3 6.25 mcg (250 unit) tablet (Citracal + Vitamin D Maximum) multivitamin (Multiple Vitamins 1 tab PO QDAY ##0 07/02/17 05/12/25 History tablet) potassium gluconate 595 mg (99 mg) 99 mg PO QDAY ##0 07/02/17 05/12/25 History tablet ascorbic acid (vitamin C) 1,000 mg 1 g PO Q6H 07/21/21 05/12/25 History tablet Allergies Allergy/AdvReac Type Severity Reaction Status Date / Time morphine (MORPHINE) Allergy Severe STOPPED Verified 05/25/25 11:04 BREATHING Sulfa (Sulfonamide Allergy Severe SWELLING, Verified 05/25/25 11:04 Antibiotics) (SULFA HIVES (SULFONAMIDE ANTIBIOTICS)) Exam Vital Signs (past 8 hours): - 05/25/25 11:06 Temperature 98.7 F Pulse Rate 78 Respiratory Rate 16 Blood Pressure 170/92 H Pulse Oximetry 100 Oxygen Delivery Method Room Air Oxygen Delivery Method Room Air Const General: comfortable Orientation: alert and oriented x3 Resp Effort & Inspection: normal respiratory effort and able to speak in complete sentences Cardio Rate: regular rate GI Palpation: soft (non-tender) Extrem General: normal to inspection Assessment & Plan Assessment and plan (1) Encounter for screening colonoscopy: Status: Acute Assessment & Plan narrative: Needs screening colonoscopy Change in bowel habits Rectal thickening on CT scan Plan colonoscopy, possible biopsy, possible polypectomy. The risks, benefits and options regarding the procedure were explained to the patient in detail. Risk discussion included but not limited to: perforation, bleeding, missed lesions. The patient was encouraged to ask questions and they were answered to their satisfaction. The patient understands and is agreeable to proceed. Time-Based Coding :: [TOTAL MINUTES] spent with patient and on the chart (including review of chart, obtaining history, exam, reviewing outside data, placing orders, documenting exam and treatment plan, and counseling patient) on [DATE]. PROFEE Director Regulatory Agency Document charge(s): Yes
--- NOTE | 2025-05-25 13:25 | P.OP.COLON_ITS ---
Operative Date/Time/Diagnoses Date of procedure: 05/25/25 Time of procedure: 13:25 Pre-op diagnosis: Need for screening colonoscopy Post-op diagnosis: same Procedure & Clinicians Study performed: Colonosocpy, partial, could not reach cecum due to redundancy/tortuosity of colon Same procedure(s) as scheduled: Yes Indications: 75yo F with fatigue, small stool caliber, bloating. CT done for uterine leiomyoma demonstrated rectal wall thickening. Surgeon: Martínez Maldonado Procedure Notes SCOAP/Timeout: Performed Procedure in detail: Patient placed in left lateral recumbent position. Time out was performed. Proce dural sedation was administered by anesthesia. Examination began with a thorough inspection of the perianal area. There was no evidence of fissures, fistulae, external hemorrhoids or cutaneous malignancy. The colonoscope was then placed into the rectum and the lumen was insufflated with carbon dioxide. The scope was carefully advanced forward. Due to redundancy and tortuosity of colon, could not reach cecum. We reached what appeared to be hepatic flexure based upon using entire length of scope and typical color of hepatic flexure. Multiple attempts to reach cecum unsuccessful. Utilized different patient positions, unlooping, variable scope stiffeness without success. Patient was retching and there was concern for aspiraiton. After discussing with anesthesia, the decision was made to end the procedure. Other than sigmoid diverticulosis, no significant pathology or polyps were appreciated in the colon length that was examined. In the rectum, retroflexion of the scope was performed for inspection of the distal rectum and anal canal. ?The colonoscopy was notable for the following: ?1. Quality of the preparation-good ?2. Unable to reach cecum due to colon redundancy and tortuosity. 3. Sigmoid diverticulosis. 4. No polyps identified in region of colon examined, incomplete exam. Scope withdrawal time: N/A - unable to reach cecum Findings: divertiulosis Specimen(s): none sent Complications: none Impression: Sigmoid diverticulosis No pathology appreciated in rectal mucosa No polyps or mass in regions of colon examined Incomplete exam Unable to reach cecum due to redundant/tortuous colon Consider alternative screening methods Post-procedure Recommendations: Other recommendation(s) (Consider alternative screening methods) Follow up: as needed Disposition: PACU
[2025-05-25] MEDS: ONDANSETRON 4 MG/2 ML INJ IV (13:47)
[2025-05-25] MEDS: BENZOCAINE/MENTHOL 1 LOZ PKT 1 EACH PO ×2 (14:03→15:14)
--- NOTE | 2025-05-25 14:25 | SUR.PHASEII ---
CXR ordered per Vladislav BRIONES for continued reported SOB post colonoscopy.
[2025-05-25] MEDS: ALBUTEROL 2.5 MG/3 ML NEB (ADULT) INH (14:33)
--- NOTE | 2025-05-25 14:40 | SUR.PHASEII ---
Pt CXR done. Neb Tx at this time. Left upper lobe decreased and slightly coarse. IS up to 2000ml.
--- NOTE | 2025-05-25 15:28 | PM.CN ---
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 Colonoscopy was unable to be completed due to a tortuous and redundant colon after recent CT showed rectal wall thickening. She needed to be placed in multiple positions but was unable to complete the procedure. She likely aspirated and was hypoxic and the case was aborted. I was asked to evaluate in PACU. Patient stated it was a bit hard to take a breath in but generally improving. She received albuterol treatments in PACU which helped. O2 saturations were in the mid to low 90s on room air at rest and with ambulation to the restroom. She reports chronic dyspnea going up hills or stairs ongoing for many months. She reported strong preference for discharge home. Meds Home Medications and Allergies Home Medications ?Medication ?Instructions ?Recorded ?Confirmed ?Type calcium 315 mg (as ##0 07/02/17 05/12/25 History citrate)-vitamin D3 6.25 mcg (250 unit) tablet (Citracal + Vitamin D Maximum) multivitamin (Multiple Vitamins 1 tab PO QDAY ##0 07/02/17 05/12/25 History tablet) potassium gluconate 595 mg (99 mg) 99 mg PO QDAY ##0 07/02/17 05/12/25 History tablet ascorbic acid (vitamin C) 1,000 mg 1 g PO Q6H 07/21/21 05/12/25 History tablet albuterol sulfate 90 mcg/actuation 1 inh inhalation QID PRN shortness 05/25/25 Rx aerosol inhaler of breath or wheezing 30 days #6.7 grams amoxicillin 875 mg-potassium 1 tab PO BID 5 days #10 tabs 05/25/25 Rx clavulanate 125 mg tablet Allergies Allergy/AdvReac Type Severity Reaction Status Date / Time morphine (MORPHINE) Allergy Severe STOPPED Verified 05/25/25 11:04 BREATHING Sulfa (Sulfonamide Allergy Severe SWELLING, Verified 05/25/25 11:04 Antibiotics) (SULFA HIVES (SULFONAMIDE ANTIBIOTICS)) Review of Systems Review of Systems Narrative: All other systems reviewed with the patient and are negative unless otherwise stated. Exam Vital Signs (past 8 hours): - 05/25/25 11:06 05/25/25 13:31 05/25/25 13:36 Temperature 98.7 F 97.2 F L Pulse Rate 78 84 82 Respiratory Rate 16 20 22 Blood Pressure 170/92 H 176/90 H 178/88 H Pulse Oximetry 100 97 93 Oxygen Delivery Method Room Air Nasal Cannula Nasal Cannula Oxygen Flow Rate 5 5 05/25/25 13:41 05/25/25 13:47 05/25/25 13:55 Temperature Pulse Rate 83 78 85 Respiratory Rate 20 20 17 Blood Pressure 189/99 H 180/84 H 176/91 H Pulse Oximetry 98 95 96 Oxygen Delivery Method Nasal Cannula Nasal Cannula Room Air Oxygen Flow Rate 4 4 05/25/25 14:00 05/25/25 14:15 05/25/25 14:49 Temperature 97.2 F L 99.1 F Pulse Rate 81 88 92 H Respiratory Rate 16 18 Blood Pressure 172/91 H Pulse Oximetry 94 94 97 Oxygen Delivery Method Room Air Room Air Oxygen Flow Rate Oxygen Delivery Method Room Air Oxygen Flow Rate 4 Narrative Exam Narrative: General:? Patient is well developed and well nourished, in no distress at this time. HEENT:? Normocephalic, atraumatic, extraocular muscles intact, oral pharynx is clear and mucous membranes are moist. Chest:? Normal AP diameter and contour without kyphoscoliosis, no tachypnea, equal chest rise bilaterally. Lungs:?Bibasilar crackles with trace wheeze Cardio:?RRR no m/r/g. Abdomen: S NT ND. Musculoskeletal:? Muscle strength and tone are equal within normal limits, no deformity. Extremities: No edema or joint effusions. No cyanosis or clubbing. Skin:? Pale,? Warm to touch,dry and intact without rashes, ulcerations or petechiae.? Neuro:? Alert and orientated x3,? sensation to touch intact in all extremities, no gross deficits noted of cranial nerves. Psych:? Patient has a well-kept appearance, appropriate affect, mental status attitude thought context and judgment are appropriate for age. [facility] Medical History Rectal abnormality Depression Fatigue Hx of ovarian cancer Abdominal bloating Change in stool caliber Somatic dysfunction of lower extremity Upper extremity somatic dysfunction Chronic pain of left hand Pain, foot, right, chronic Tinea corporis Hyperlipidemia, mixed Bilateral lower extremity edema Screen for colon cancer Psoriasis Eczema Sleep apnea (~2010) Fibromyalgia (~2006) Rheumatic fever Mumps Herpes Chicken pox Vertigo (~2017) Tinnitus Hearing loss Cataracts, bilateral (~2017) Hypertension Surgical History Anesthesia History of dilatation and curettage (~1993) History of tonsillectomy (~1965) Uterine polyp (~2016) Lipoma (~2016) Family History Father History of heart disease Mother History of heart disease Hypertension Brother Cancer Grandfather History of heart disease Grandmother Hip fracture Grandfather Cancer Social History household members: significant other Tobacco & Substance Use Smoking Status: Former smoker alcohol intake: never substance use type: does not use Assessment & Plan Assessment & Plan narrative: 1. Aspiration pneumonitis, acute - likely aspiration event due to difficulty with colonoscopy. CXR consistent with a LLL aspiration. Likely MELITON was also contributory to her hypoxia. Previous CT reviewed which showed no evidence of chronic pulmonary disease. - She had quick improvement with nebulizer treatments in the ER, and is no longer hypoxic. She strongly desired to discharge home from the PACU after discussion. Which is reasonable given lack of hypoxia and improvement in PACU so far. - Recommend 5 days of amoxicillin-pot clavulanate for possible LLL PNA / aspiration. - albuterol inhaler also prescribed. - recommend PCP follow up for recheck of recent fatigue/dyspnea symptoms. Code: Full, surrogate is patient's spouse DVT: N/A I have utilized all available immediate resources to obtain, update, or review the patient's current medications. Dispo: Patient prefers discharge from PACU. Sent antibiotics and albuterol as noted above. Additional history obtained via discussions with the anesthesiologist, and patient's spouse. These discussions contributed to the creation of the above assessment and plan. I have reviewed patient's presenting documentation, labs, and imaging personally. Time-Based Coding :: [TOTAL MINUTES] spent with patient and on the chart (including review of chart, obtaining history, exam, reviewing outside data, placing orders, documenting exam and treatment plan, and counseling patient) on [DATE].
--- NOTE | 2025-05-25 15:47 | SUR.PHASEII ---
PT up to BR. O2 sats 92-95% while ambulating and no increase in SOB. Pt sitting up now, dressed and states that she is feeling better sitting up in chair and now IS up to 2500ml.
--- NOTE | 2025-05-25 16:24 | PM.PN.1 ---
Subjective Subjective Interval history: Work up in PACU/Phase 2 for possible aspiration during colonoscopy. Patient vomited while laying on left side with head elevated during colonoscopy. Transient hypoxia noted directly after emesis. Improved with increased NC O2 flow. On awakening in PACU patient endorsed shortness of breath, SpO2 noted to be 91-95% on RA. Placed on O2, ordered albuterol nebulizer treatment and CXR. CXR consistent with possible aspiration. Consulted with Dr. Jensen (see his note for his assessment). Exam Vital Signs (past 8 hours): - 05/25/25 11:06 05/25/25 13:31 05/25/25 13:36 Temperature 98.7 F 97.2 F L Pulse Rate 78 84 82 Respiratory Rate 16 20 22 Blood Pressure 170/92 H 176/90 H 178/88 H Pulse Oximetry 100 97 93 Oxygen Delivery Method Room Air Nasal Cannula Nasal Cannula Oxygen Flow Rate 5 5 05/25/25 13:41 05/25/25 13:47 05/25/25 13:55 Temperature Pulse Rate 83 78 85 Respiratory Rate 20 20 17 Blood Pressure 189/99 H 180/84 H 176/91 H Pulse Oximetry 98 95 96 Oxygen Delivery Method Nasal Cannula Nasal Cannula Room Air Oxygen Flow Rate 4 4 05/25/25 14:00 05/25/25 14:15 05/25/25 14:49 Temperature 97.2 F L 99.1 F Pulse Rate 81 88 92 H Respiratory Rate 16 18 Blood Pressure 172/91 H Pulse Oximetry 94 94 97 Oxygen Delivery Method Room Air Room Air Oxygen Flow Rate 05/25/25 15:46 Temperature 99.2 F Pulse Rate 104 H Respiratory Rate 18 Blood Pressure Pulse Oximetry 94 Oxygen Delivery Method Room Air Oxygen Flow Rate Oxygen Delivery Method Room Air Oxygen Flow Rate 4 Resp Effort & Inspection: normal respiratory effort, able to speak in complete sentences (states difficult to speak due to intermittent shortness of breath), cough and symmetric chest movement Auscultation: crackles bilaterally at the base and wheezes left lower Other: 91-96% on room air. Endorses mild shortness of breath, improved following albuterol nebulizer. Cardio Rate: regular rate Rhythm: regular rhythm Objective Imaging Chest x-ray: Radiologist's impression: Findings suspicious for left lower lobe aspiration. Short interval followup is recommended with resolution of the patient's symptoms to ensure there is no underlying pulmonary pathology. Dictated by: Emily García M.D. on 05/25/2025 at 14:53 [facility] Medical History Rectal abnormality Depression Fatigue Hx of ovarian cancer Abdominal bloating Change in stool caliber Somatic dysfunction of lower extremity Upper extremity somatic dysfunction Chronic pain of left hand Pain, foot, right, chronic Tinea corporis Hyperlipidemia, mixed Bilateral lower extremity edema Screen for colon cancer Psoriasis Eczema Sleep apnea (~2010) Fibromyalgia (~2006) Rheumatic fever Mumps Herpes Chicken pox Vertigo (~2016) Tinnitus Hearing loss Cataracts, bilateral (~2017) Hypertension Surgical History Anesthesia History of dilatation and curettage (~1993) History of tonsillectomy (~1965) Uterine polyp (~2016) Lipoma (~2016) Family History Father History of heart disease Mother History of heart disease Hypertension Brother Cancer Grandfather History of heart disease Grandmother Hip fracture Grandfather Cancer Social History household members: significant other Smoking Status: Former smoker alcohol intake: never substance use type: does not use Assessment & Plan Assessment and plan (1) Dyspnea: Qualifiers: Dyspnea type: shortness of breath Qualified Code(s): R06.02 - Shortness of breath Status: Acute Plan Consult with Dr. Jensen, discharge to home if cleared. Assessment & Plan narrative: Discharging to home with antibiotics and albuterol inhaler per Dr. Jensen. Return to ER for worsening symptoms. Follow up with PCP for chronic fatigue and dyspnea on exertion. Time-Based Coding :: [TOTAL MINUTES] spent with patient and on the chart (including review of chart, obtaining history, exam, reviewing outside data, placing orders, documenting exam and treatment plan, and counseling patient) on [DATE].
== END 2025-05-25 16:35 | disposition home or self-care (01) ==
PROVIDERS: PCP Family Medicine; Referring Provider Surgery; Visit Provider Surgery
PROC: 0DJD8ZZ Inspection of Lower Intestinal Tract, Via Natural or Artificial Opening Endoscopic (ICD-10-PCS; CPT 45378; principal; 2025-05-25 11:45)
DX: Z12.11 Encounter for screening for malignant neoplasm of colon (principal); Z53.09 Procedure and treatment not carried out because of other contraindication; R09.02 Hypoxemia; G47.33 Obstructive sleep apnea (adult) (pediatric); I10 Essential (primary) hypertension; Z80.0 Family history of malignant neoplasm of digestive organs; Z87.891 Personal history of nicotine dependence; Z85.43 Personal history of malignant neoplasm of ovary; K57.30 Diverticulosis of large intestine without perforation or abscess without bleeding
CPT/HCPCS: G0121; 71045; J1100; J2405; J2704; J7613